=== PATIENT | female | born 2000 | race African-American/Black ===

== ENCOUNTER 2022-07-07 17:53 | Emergency (ER) | payer BC, SELFPAY ==
[2022-07-07 17:55] VITALS: BP 135/93; PULSE 99; RESP 12; TEMP 36.6; O2SAT 100
--- NOTE | 2022-07-07 18:07 | ED.SKABFB ---
HPI - Skin/Abscess/Foreign Bdy General Chief complaint: Skin/Abscess/Foreign Body Stated complaint: SCALP IRRITATION FROM HAIR PRODUCT Time Seen by Provider: 07/07/22 17:59 History of Present Illness HPI narrative: Patient is a 22 year old female here for evaluation of scalp pain and irritation x 2 hours. Patient states she had a braided hairstyle in her hair for 2 weeks, and when she removed the gary today, she noticed that her scalp was irritated and painful at the site of the gary. She has not attempted any medication for her pain. Has seen a senior network systems engineer in the past and has been diagnosed with seborrheic dermatitis, was given a liquid to apply to the area but states her scalp was irritated with that as well. Denies systemic symptoms. No further complaints. Review of Systems Review of Systems: Gen: Denies fevers or chills Eyes: Denies eye pain or visual change ENT: Denies congestion Respiratory: Denies shortness of breath or cough CV: Denies chest pain or palpitations GI: Denies abdominal pain nausea, emesis or diarrhea denies burning, urgency, frequency or hematuria Musculoskeletal: Denies back pain or muscle pain Neuro: Denies numbness, tingling, weakness or focal weakness Skin: reports scalp pain Except as documented, all other systems reviewed and negative Exam Narrative: Gen: alert, oriented, no acute distress Eyes: EOMI, no icterus Pulm: Respirations even and unlabored, symmetric thorax expansion, no audible stridor or visible cyanosis CV: Regular rate per telemetry GI: No distension, no voluntary/involuntary guarding Neuro: AOx4, moves all extremities without apparent difficulty or weakness, follows commands Skin: patient's posterior scalp is non-tender to palpation, slightly erythematous in areas, large amount of flaking noted. no underlying fluctuance or induration. Psych: Normal mood/affect, insight/judgement good, adequate fund of knowledge, recent/remote memory intact Course Vital Signs Vital signs: Vital Signs Temperature 97.9 F 07/07/22 17:55 Pulse Rate 99 07/07/22 17:55 Respiratory Rate 12 07/07/22 17:55 Blood Pressure 135/93 H 07/07/22 17:55 Pulse Oximetry 100 07/07/22 17:55 Oxygen Delivery Room Air 07/07/22 17:55 Temperature 97.9 F 07/07/22 17:55 Pulse Rate 99 07/07/22 17:55 Respiratory Rate 12 07/07/22 17:55 Blood Pressure 135/93 H 07/07/22 17:55 Pulse Oximetry 100 07/07/22 17:55 Oxygen Delivery Room Air 07/07/22 17:55 MDM - Skin/Abscess/Foreign Bdy MDM Narrative Medical decision making narrative: 22 year old female here for evaluation of scalp irritation after removing her gary today. She is non-toxic appearing with normal vial signs on exam. Her scalp appears slightly erythematous in areas and has a large amount of flaking, consistent with dermatitis, likely seborrheic. Advised Ibuprofen/tylenol as needed for pain and selsum blue shampoo, and encouraged her to follow up with her senior network systems engineer next week. She was given return precautions. Discharge Plan Discharge Clinical Impression: Seborrheic dermatitis of scalp Patient Disposition: Home, Self-Care Condition: Stable Instructions: Antibiotic Form, Dermatitis (ED) Additional Instructions: The pain on your scalp is likely due to removal of the gary. You also have evidence of a possible fungal infection on your scalp called seborrheic dermatitis. Alternate between Tylenol and ibuprofen. You can take 1000mg of Tylenol every 6 hours and 800 mg Motrin/ibuprofen every 8 hours for the pain. You may also use Selsun Blue shampoo once the inflammation calms down. Follow-up with your senior network systems engineer next week Follow-up/Referrals: Maximo Hobbs MD [Physician] -
== END 2022-07-07 18:20 | disposition home or self-care (01) ==
PROVIDERS: Emergency Provider Emergency Medicine; PCP Family Medicine
DX: L21.9 Seborrheic dermatitis, unspecified (principal)
CPT/HCPCS: 99281